=== PATIENT | female | born 1975 | race Caucasian/White ===

== ENCOUNTER 2017-12-16 14:10 | Inpatient (IN) | payer OTHER ==
[~2017-12-16] VITALS: Ht 177.8 cm; Wt 110.0 kg
[2017-12-16 15:12] LABS: UA SPECIFIC GRAVITY 1.015 (1.005-1.035); microscopic required? YES; urine erythrocyte TRACE (NEGATIVE)
[2017-12-16 15:20] LABS: BASOPHIL % 0.7 % (0-2); PLATELET COUNT 202 x10^3mcL (130-400); RED CELL DISTRIBUTION WIDTH 13.4 % (11.5-14.5)
[2017-12-16 15:29] LABS: ALBUMIN 3.6 g/dL (3.4-5.0); ALKALINE PHOSPHATASE 75 U/L (46-116); ALT/SGPT 48 U/L (14-59); AMYLASE 67 U/L (25-115); AST/SGOT 35 U/L (15-37); BILIRUBIN TOTAL 0.4 mg/dL (0.20-1.00); CALCIUM 8.7 mg/dL (8.5-10.1); CARBON DIOXIDE 28.6 mmol/L (21-32); CHLORIDE SERUM 104 mmol/L (98-107); CHOLESTEROL 161 mg/dL (<200); CREATININE SERUM 0.8 mg/dL (0.6-1.0); GFR1 > 60 mL/min; GLUCOSE SERUM 110 mg/dL (74-106); HDL CHOLESTEROL 42 mg/dL (40-60); LIPASE 155 IU/L (73-393); SODIUM SERUM 143 mmol/L (136-145)
[2017-12-16 15:30] LABS: AMPHETAMINE QUAL UR NONE DETECTED (NEG <=1000)
[2017-12-16 15:33] LABS: POTASSIUM SERUM 2.8 mmol/L (3.5-5.1)
[2017-12-16] MEDS ORDERED: ZESTRIL20 MG PO (17:03)
[2017-12-16 18:30] VITALS: BP 122/60
[2017-12-16 18:37] VITALS: Ht 177.8 cm; Wt 110.0 kg
[2017-12-16 20:36] VITALS: BP 97/80
[2017-12-17 04:58] VITALS: BP 105/56
[2017-12-17 07:09] LABS: CALCIUM 7.9 mg/dL (8.5-10.1); CARBON DIOXIDE 27.2 mmol/L (21-32); CHLORIDE SERUM 107 mmol/L (98-107); CREATININE SERUM 0.7 mg/dL (0.6-1.0); GFR1 > 60 mL/min; GLUCOSE SERUM 101 mg/dL (74-106); HDL CHOLESTEROL 37 mg/dL (40-60); LIPASE 113 IU/L (73-393); MAGNESIUM 1.7 mg/dL (1.8-2.4); POTASSIUM SERUM 3.3 mmol/L (3.5-5.1); SODIUM SERUM 142 mmol/L (136-145); TRIGLYCERIDES 93 mg/dL (<150)
[2017-12-17 07:12] LABS: CHOLESTEROL 129 mg/dL (<200); CHOLESTEROL/HDL RATIO 3.5
[2017-12-17 09:31] VITALS: BP 119/62
[2017-12-17 12:47] VITALS: BP 117/59
[2017-12-17 17:06] VITALS: BP 117/59
== END 2017-12-17 17:44 | disposition home or self-care (01) | DRG 243 ==
LOC: ED 14:10 → DU 16:46
PROVIDERS: Emergency Medicine; Internal Medicine Pulmonary Disease
DX: K21.9 Gastro-esophageal reflux disease without esophagitis (principal); E87.1 Hypo-osmolality and hyponatremia; I10 Essential (primary) hypertension; E83.39 Other disorders of phosphorus metabolism; N39.0 Urinary tract infection, site not specified; E87.6 Hypokalemia; E66.01 Morbid (severe) obesity due to excess calories; Z88.5 Allergy status to narcotic agent
CPT/HCPCS: 83880; A9500; J0696; J2785; J3480; J7030; Q0092; Q0162